=== PATIENT | female | born 1955 | race Caucasian/White ===

== ENCOUNTER 2019-09-02 10:11 | Observation (INO) | payer OTHER ==
[~2019-09-02] VITALS: Ht 165.1 cm; Wt 59.9 kg
[2019-09-02 10:22] VITALS: BP 142/86
[2019-09-02] MEDS ORDERED: FOLIC ACID1 MG PO (10:29)
[2019-09-02] MEDS ORDERED: DEXAMETHASONE 44 M1 PO (10:30)
[2019-09-02] MEDS ORDERED: NARCAN4 MG NARES (10:31)
[2019-09-02] MEDS ORDERED: HYDROCODONE-CH115 ML PO (10:33)
[2019-09-02] MEDS ORDERED: AMLODIPINE BESY10 MG PO (10:34)
[2019-09-02] MEDS ORDERED: NAPRELAN375 MG PO (10:34)
[2019-09-02] MEDS ORDERED: PERCOCET 10-321 EAC1 PO (10:35)
[2019-09-02] MEDS ORDERED: HYDROXYZINE HCL10 M2 PO (10:36)
[2019-09-02] MEDS ORDERED: COMPAZINE10 MG PO (10:37)
[2019-09-02 11:44] LABS: ABSOLUTE BASOPHILS 0.1 thou/uL (0.0-0.2); ABSOLUTE LYMPHOCYTES 1.3 thou/uL (0.8-5.3); ABSOLUTE MONOCYTES 0.4 thou/uL (0.0-1.2); ABSOLUTE NEUTROPHILS 6.3 thou/uL (1.6-8.1); BASOPHILS 0.8 %; EOSINOPHILS 0.3 %; HEMATOCRIT 36.6 % (37.0-47.0); HEMOGLOBIN 12.8 gm/dL (12.0-15.0); LYMPHOCYTES 16.5 %; MCH 26.8 pg (26.0-34.0); MCHC 35.1 g/dL (28.0-37.0); MCV 76.4 fL (80.0-100.0); MONOCYTES 4.5 %; MPV 10.8 fl. (7.2-11.1); NUCLEATED RBCS 0 /100WBC; PLATELET COUNT* 328 thou/uL (150-400); POLYS 77.9 %; RBC 4.79 mil/uL (4.20-5.00); RDW-CV 13.8 % (10.5-14.5); WBC 8.1 thou/uL (4.0-11.0)
[2019-09-02 12:10] LABS: ALBUMIN 3.9 g/dL (3.4-5.0); CALCIUM 9.4 mg/dL (8.5-10.1); CREATININE 0.6 mg/dL (0.6-1.3); TOTAL BILIRUBIN 0.5 mg/dL (<0.1-1.0); TOTAL PROTEIN 10.5 g/dL (6.4-8.2)
[2019-09-02 12:11] LABS: POTASSIUM 5.6 mmol/L (3.5-5.1)
[2019-09-02 12:38] LABS: URINE BILIRUBIN NEGATIVE (Negative); URINE BLOOD TRACE (Negative); URINE CLARITY CLEAR; URINE COLOR YELLOW; URINE GLUCOSE-RANDOM NEGATIVE (Negative); URINE KETONES NEGATIVE (Negative); URINE LEUKOCYTES-REFLEX NEGATIVE (Negative); URINE NITRITE-REFLEX NEGATIVE (Negative); URINE PROTEIN NEGATIVE (Negative); URINE SPECIFIC GRAVITY <= 1.005 (1.005-1.030); URINE UROBILINOGEN 0.2 E.U./dl (0.2-1.0)
--- NOTE | 2019-09-02 13:35 | EKG ---
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 09/02/19 1333 1147 1147 Yobani Amador MD, [facility] /EPI
[2019-09-02 16:57] VITALS: BP 110/63
[2019-09-02 17:20] VITALS: BP 122/72
--- NOTE | 2019-09-02 19:06 | NUR ---
PT. ADMITTED TO FLOOR BY BED FROM ER. VSS, AOX4, NO SKIN BREAKDOWN NOTED. SR-ST ON MONITOR, ROOM AIR, ADMISSION ASSESSMENT PERFORMED. PT. ORIENTED TO ROOM. CALL LIGHT AND PERSONAL BELONGINGS PLACED WITHIN REACH. PIV ON L AC AND R WR. SALINE LOCKED.
[2019-09-02 20:00] VITALS: BP 123/74
[2019-09-02] MEDS ORDERED: SYMBICORT160 MCG/4. INH (23:40)
[2019-09-02] MEDS ORDERED: OXYCODONE HCL 55 MG PO (23:43)
[2019-09-02] MEDS ORDERED: MELATONIN10 M3 PO (23:45)
[2019-09-03] VITALS: BP 113/62
[2019-09-03 04:00] VITALS: BP 115/73
[2019-09-03 05:12] LABS: HEMATOCRIT 33.6 % (37.0-47.0); HEMOGLOBIN 11.4 gm/dL (12.0-15.0); MCH 26.3 pg (26.0-34.0); MCHC 33.9 g/dL (28.0-37.0); MCV 77.4 fL (80.0-100.0); MPV 11.1 fl. (7.2-11.1); RBC 4.34 mil/uL (4.20-5.00); RDW-CV 14.3 % (10.5-14.5); WBC 10.9 thou/uL (4.0-11.0)
[2019-09-03 05:42] LABS: ALBUMIN 3.2 g/dL (3.4-5.0); CALCIUM 8.4 mg/dL (8.5-10.1); CREATININE 0.7 mg/dL (0.6-1.3); POTASSIUM 3.4 mmol/L (3.5-5.1); TOTAL BILIRUBIN 0.4 mg/dL (<0.1-1.0); TOTAL PROTEIN 7.9 g/dL (6.4-8.2)
--- NOTE | 2019-09-03 06:28 | NUR ---
ASSUMED PT CARE AT APPROX 1930. PT IS AWAKE AND ORIENTED X4. HAIR BOILER IS TRACING SR/ST. ASSESSMENT DONE AND CHARTED. PT STATED THAT THE PAIN IS STILL THERE BUT SHE DENIES THE NEED FOR MORE PAIN MEDICINE. FENTANYL PATCH IN PLACE. PT IS ABLE TO SLEEP SOME OF THE NIGHT. CALL LIGHT WITHIN REACH. HOURLY ROUNDING DONE FOR PT SAFETY.
[2019-09-03 08:30] VITALS: BP 108/59
[2019-09-03] MEDS ORDERED: MARINOL 2.5 MG2.5 M1 PO (09:29)
[2019-09-03] MEDS ORDERED: FENTANYL PATCH75 MCG TRANSDERM (09:29)
[2019-09-03] MEDS ORDERED: OXYCODONE HCL 55 MG PO (09:29)
[2019-09-03] MEDS ORDERED: PROAIR HFA8.5 GM INH (10:42)
[2019-09-03 10:52] VITALS: BP 115/73
--- NOTE | 2019-09-03 11:45 | NUR ---
DC ORDERS RECEIVED. IV AND MONITOR REMOVED. PT. GIVEN DC INSTRUCTIONS, SCRIPTS, AND CARENOTES. PT. C/O OF NAUSEA/DIZZINESS PRIOR TO DC. PT. DID NOT WANT TO STOP DISCHARGE, SHE WANTED TO MAKE HER APPT. WITH HER REGULAR DOCTOR TODAY. ENCOURAGED PT. TO DISCUSS THIS NEW SYMPTOM, DISCUSSED SIDE EFFECTS OF NEW MEDICATIONS STARTED WELL. PT. DC WITH DAUGHTER IN PERSONAL VEHICLE, ALL BELONGINGS ACCOUNTED FOR.
== END 2019-09-03 11:42 | disposition home or self-care (01) ==
LOC: M.ERS 10:11 → M.2W 13:27 → M.TBA-ER 13:27 → M.2W 17:24
PROVIDERS: Nurse Practitioner Family; ADMIT Family Medicine
DX: F11.23 Opioid dependence with withdrawal (principal); E87.5 Hyperkalemia; C34.90 Malignant neoplasm of unspecified part of unspecified bronchus or lung; C79.51 Secondary malignant neoplasm of bone; R41.0 Disorientation, unspecified; I10 Essential (primary) hypertension; F41.9 Anxiety disorder, unspecified; F32.9 Major depressive disorder, single episode, unspecified

== ENCOUNTER 2019-10-19 08:54 | Inpatient (IN) | payer OTHER ==
[~2019-10-19] VITALS: Ht 157.5 cm; Wt 49.8 kg
[~2019-10-19 08:54] MED LIST: AMLODIPINE BESY10 MG PO; COMPAZINE10 MG PO; DEXAMETHASONE 44 M1 PO; FENTANYL PATCH75 MCG TRANSDERM; FOLIC ACID1 MG PO; HYDROCODONE-CH115 ML PO; HYDROXYZINE HCL10 M2 PO; MARINOL 2.5 MG2.5 M1 PO; MELATONIN10 M3 PO; NAPRELAN375 MG PO; NARCAN4 MG NARES; OXYCODONE HCL 55 MG PO; PERCOCET 10-321 EAC1 PO; PROAIR HFA8.5 GM INH; SYMBICORT160 MCG/4. INH
[2019-10-19 09:07] VITALS: BP 114/76
[2019-10-19 09:54] LABS: ABSOLUTE LYMPHOCYTES 1.7 thou/uL (0.8-5.3); ABSOLUTE MONOCYTES 0.6 thou/uL (0.0-1.2); BASOPHILS 0.3 %; HEMATOCRIT 34.7 % (37.0-47.0); HEMOGLOBIN 11.7 gm/dL (12.0-15.0); LYMPHOCYTES 14.8 %; MCH 26.2 pg (26.0-34.0); MCHC 33.8 g/dL (28.0-37.0); MCV 77.6 fL (80.0-100.0); NUCLEATED RBCS 0 /100WBC; POLYS 79.9 %; RBC 4.47 mil/uL (4.20-5.00); RDW-CV 14.8 % (10.5-14.5); WBC 11.3 thou/uL (4.0-11.0)
[2019-10-19 10:06] LABS: CALCIUM 8.8 mg/dL (8.5-10.1); CREATININE 0.6 mg/dL (0.6-1.3); POTASSIUM 4.5 mmol/L (3.5-5.1)
[2019-10-19 10:13] LABS: APTT 26.6 Seconds (25.0-31.3); PROTIME 10.7 Seconds (9.20-11.50)
[2019-10-19 10:16] LABS: ALBUMIN 3.2 g/dL (3.4-5.0); MAGNESIUM 1.9 mg/dL (1.8-2.4); TOTAL BILIRUBIN 0.4 mg/dL (<0.1-1.0); TOTAL PROTEIN 9.2 g/dL (6.4-8.2)
--- NOTE | 2019-10-19 10:21 | NUR ---
UNABLE TO OBTAIN IV AFTER TRIAGE, ATTEMPT X 2 UNSUCCESSFUL. DEVONTE COX [facility] CALLED TO INITIATE IV
[2019-10-19 10:45] LABS: GIANT PLATELETS OCCASIONAL; LARGE PLATELETS OCCASIONAL
[2019-10-19 10:46] LABS: PLATELET COUNT* 282 thou/uL (150-400)
[2019-10-19] MEDS ORDERED: OXYCONTIN15 MG PO (11:04)
[2019-10-19] MEDS ORDERED: DULCOLAX STOOL100 M1 PO (11:04)
[2019-10-19 11:19] VITALS: BP 134/79
[2019-10-19 12:05] VITALS: BP 134/75
--- NOTE | 2019-10-19 15:30 | EKG ---
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 : 1955 Requested By: Andres Huang Order Number: [id number] MD: Antonio Navarrete Measurements Intervals [place] Rate: 109 P: 77 [place]: 127 QRS: -8 QRSD: 67 T: 147 QT: 317 QTc: 427 Interpretive Statements Sinus tachycardia Nonspecific T abnormalities, lateral leads Baseline wander in lead(s) V5 Compared to ECG 09/02/2019 11:47:03 Left ventricular hypertrophy no longer present T-wave abnormality still present Electronically Signed On 10-19-2019 15:29:13 CDT by Antonio Navarrete [email or web address] <ELECTRONICALLY SIGNED> By: Antonio Navarrete MD, FACC 10/19/19 1529 9 9 Antonio Navarrete MD, [facility] /EPI
[2019-10-19 16:00] VITALS: BP 144/52
[2019-10-19 20:15] VITALS: BP 135/58
[2019-10-20 04:07] LABS: ABSOLUTE LYMPHOCYTES 1.5 thou/uL (0.8-5.3); ABSOLUTE MONOCYTES 0.2 thou/uL (0.0-1.2); ABSOLUTE NEUTROPHILS 5.9 thou/uL (1.6-8.1); BASOPHILS 0.1 %; HEMATOCRIT 32.3 % (37.0-47.0); HEMOGLOBIN 11.2 gm/dL (12.0-15.0); LYMPHOCYTES 19.8 %; MCH 26.2 pg (26.0-34.0); MCHC 34.6 g/dL (28.0-37.0); MCV 75.9 fL (80.0-100.0); MONOCYTES 2.2 %; MPV 10.4 fl. (7.2-11.1); NUCLEATED RBCS 0 /100WBC; PLATELET COUNT* 236 thou/uL (150-400); POLYS 77.9 %; RBC 4.25 mil/uL (4.20-5.00); RDW-CV 14.4 % (10.5-14.5); WBC 7.6 thou/uL (4.0-11.0)
--- NOTE | 2019-10-20 04:11 | NUR ---
ASSUMED CARE FROM DAY SHIFT , PT UP AMBULATING IN HALLWAY TOLERATING WELL, PAIN MEDICATION X1 SLEEPING WELL THROUGHOUT HOURLY ROUNDS, WILL CONTINUE WITH CURRENT PLAN OF CARE.
[2019-10-20 04:27] LABS: CALCIUM 8.9 mg/dL (8.5-10.1); CREATININE 0.7 mg/dL (0.6-1.3)
[2019-10-20 04:28] LABS: POTASSIUM 3.5 mmol/L (3.5-5.1)
[2019-10-20 07:50] VITALS: BP 118/66
[2019-10-20 16:00] VITALS: BP 115/71
--- NOTE | 2019-10-20 17:12 | NUR ---
ASSUMED CARE OF PATIENT AT APPROX 0730. ALERT AND ORIENTED X4. ASSESSMENT COMPLETED AND CHARTED. VSS ON ROOM AIR. PAIN MANAGED WITH FENTANYL AND OXY IR. FLUIDS INFUSED ORDERED. PATIENT UP AD ISAURO IN THE ROOM. SHOWERED TODAY. NO OTHER COMPLAINTS THIS SHIFT. CALL LIGHT WITHIN REACH. HOURLY ROUNDS COMPLETED. WILL CONTINUE WITH PLAN OF CARE.
[2019-10-20 20:00] VITALS: BP 129/69
[2019-10-21 04:16] LABS: ABSOLUTE LYMPHOCYTES 3.1 thou/uL (0.8-5.3); ABSOLUTE MONOCYTES 0.8 thou/uL (0.0-1.2); BASOPHILS 0.4 %; EOSINOPHILS 0.1 %; HEMATOCRIT 34.8 % (37.0-47.0); HEMOGLOBIN 11.6 gm/dL (12.0-15.0); LYMPHOCYTES 22.3 %; MCH 25.5 pg (26.0-34.0); MCHC 33.2 g/dL (28.0-37.0); MCV 76.7 fL (80.0-100.0); MPV 11.8 fl. (7.2-11.1); NUCLEATED RBCS 0 /100WBC; PLATELET COUNT* 265 thou/uL (150-400); POLYS 71.2 %; RBC 4.54 mil/uL (4.20-5.00); RDW-CV 14.7 % (10.5-14.5)
[2019-10-21 04:38] LABS: ALBUMIN 2.7 g/dL (3.4-5.0); CALCIUM 8.3 mg/dL (8.5-10.1); CREATININE 0.6 mg/dL (0.6-1.3); TOTAL BILIRUBIN 0.3 mg/dL (<0.1-1.0); TOTAL PROTEIN 7.5 g/dL (6.4-8.2)
[2019-10-21 04:40] LABS: POTASSIUM 2.8 mmol/L (3.5-5.1)
--- NOTE | 2019-10-21 05:32 | NUR ---
PT A&O. VSS ON RA. MEDS GIVEN ORDERED. PT C/O PAIN IN LT LEG AND PAIN MANAGED WITH OXY IR. PT SLEEPING/RESTING THROUGH THE NIGHT. POTASSIUM 2.[address] YODER. WILL CONTINUE TO MONITOR.
[2019-10-21 07:50] VITALS: BP 140/71
--- NOTE | 2019-10-21 09:00 | NUR ---
SPOKE WITH PT.ABOUT HOSPICE. SHE WANTED TO CALL SISTER FOR CM TO SPEAK WITH HER. SPOKE WITH DORCAS/SISTER IN [place] [phone]. SHE SPOKE FLUENT CANADIAN. SHE SAID SHE FEELS SISTER UNDERSTANDS THERE ISNT MUCH FOR THE TO DO FOR HER. SHE FEELS SHE IS INTERESTED IN HOSPICE BUT WOULD WANT PALLIATIVE RADIAION. TOLD HER I WAS GOING TO GET IN TOUCH WITH A HOSPICE AGENCY AND THEY WOULD MOST LIKELY CALL PT.AND HER. CM CALLED [facility]. EXPLAINED AND GAVE INFORMATION ABOUT PT. FAXED REFERRAL INFORMATION AND ORDER TO HER . SHE SAID SHE WOULD HAVE FORENSIC EXAMINER AND CALL SISTER AND DAUGHTER. SHE WILL CHECK TO SEE IF THEY CAN COME TO HOSPITAL FOR EVAL.
[2019-10-21 16:14] VITALS: BP 137/73
--- NOTE | 2019-10-21 18:14 | NUR ---
ASSUMED CARE OF PATIENT AT APPROX 0730. ALERT AND ORIENTED X4. ASSESSMENT COMPLETED AND CHARTED. VSS ON ROOM AIR. COMPLAINTS OF PAIN MANAGED WITH IV FENTANYL AND ORAL OXY. FENTANYL PATCH CHANGED IT CAME OFF DURING HER SHOWER TODAY. PATIENT UP AD ISAURO IN THE ROOM. CALL LIGHT WITHIN REACH. HOURLY ROUNDS COMPLETED. WILL CONTNINUE WITH PLAN OF CARE.
[2019-10-21 20:30] VITALS: BP 136/80
--- NOTE | 2019-10-22 06:57 | NUR ---
Alert and oriented x 4. She is up independently in her room. She as been having abdominal pain and L leg pain. She had had PRN pain meds x 3. This am her K+ was 3.5. She states that she is feeling a little better this am. She has slept intermittenly.
[2019-10-22] MEDS ORDERED: MECLIZINE HCL25 M1 PO (07:54)
[2019-10-22] MEDS ORDERED: PHENERGAN 25 MG25 M1 PO (07:54)
[2019-10-22 08:00] VITALS: BP 108/71
[2019-10-22 11:44] VITALS: BP 108/71
--- NOTE | 2019-10-22 16:00 | NUR ---
SPOKE WITH [facility] . THEY SAID THEY WOULD NOT BE ABLE TO ACCEPT PT.TO SERVICE DUE TO NO INSURANCE. SPOKE WITH [facility]. HE CALLED AND SPOKE WITH PTS SISTER ,DORCAS. HE SAID SHE TOLD HIM PT.ONLY COBRA'D HER INSURANCE WAS SO SHE COULD HAVE RADIATION. HE SAID INS.WILL NOT PAY FOR HOSPICE AND RADIATION EVEN IF ITS PALLIATIVE. DISCUSSED WITH . PT.TO GO HOME WITH PALLIATIVE CARE AND HH. WILL CHECK WITH [facility] TO SEE IF THEY WOULD DO 1-2 SABINE VISITS. FAXED INFORMATION TO [facility] PALL[facility]. BRYNN CALLED BACK AND SAID THEY WOULD ACCEPT HER ON TO PALLIATIVE CARE. THEY WILL ALSO EVAL HER FOR HOSPICE WHEN RN GOES TO SEE HER AT HOME. THEY WOULD CONSIDER HOSPICE IF NEEDED IF PT WERE GETTING PALLIATIVE RADIATION. NO CALL BACK FROM . CM WILL CALL AGAIN FRIDAY. TOLD PT.ABOUT BEING DISCHARGED WITH PALLIATIVE CARE. SHE WAS TEARFUL. WE CALLED HER SISTER DORCAS. SHE SAID PT.S DAUGHTER HAS ALREADY GONE TO WORK FOR THE NIGHT. PT.WOULD BE ALONE DURING THE NIGHT. SHE FEELS SHE IS HAVING TOO MUCH PAIN TO GO HOME TODAY. NURSING INFORMED.
--- NOTE | 2019-10-22 17:42 | NUR ---
PT IS A/O X4 BUT HAS DIFFICULTY COMMUNICATING DUE TO LANGUAGE BARRIER AT TIMES.AMILODIPINE HELD THIS AM DUE TO LOW BP.PAIN MANAGED WELL WITH PO MEDICATIONS.N/V MANAGED WELL WITH IV MEDICATIONS.PT AMBULATED IN HALLWAY.PT WAS OK FOR DISCHARGE BUT PT AND FAMILY WANTED PT TO STAY ANOTHER NIGHT.PT WOULD BE HOMOE ALONE WITH NO ONE THERE IF WENT HOME TONIGHT.PHYSICIAN NOTIFIED.POSSIBLY DISCHARGE TOMORROW.CALL LIGHT WITHIN REACH.WILL CONTINUE TO MONITOR FOR DURATION OF SHIFT.
[2019-10-22 22:00] VITALS: BP 122/74
--- NOTE | 2019-10-23 05:08 | NUR ---
PT A&O, VSS ON RA. MEDS GIVEN ORDERED. PAIN MANAGED WITH OXY IR. PT SLEEPING THROUGH THE NIGHT. WILL CONTINUE TO MONITOR.
[2019-10-23 08:03] VITALS: BP 120/67
[2019-10-23 09:25] VITALS: BP 120/67
--- NOTE | 2019-10-23 11:14 | NUR ---
SPOKE WITH PT SISTER, DORCAS OVER THE PHONE. EXPLAINED TO HER THAT THE PT WAS DOING BETTER AND WOULD BE DISCHARGED TO HOME WITH PALLIATIVE CARE TODAY. SISTER AGREED IN THE DECISION MAKING AND IS GOING TO CONTACT THE PT DAUGHTER.
--- NOTE | 2019-10-23 18:10 | NUR ---
PT DISCHARGED TO HOME WITH PALLIATIVE CARE BY WHEELCHAIR WITH NURSING STAFF AND DAUGHTER. IV OUT. PAIN CONTROLLED. DENIED N/V. PERSONAL ITEMS SENT WITH PT.
--- NOTE | 2019-11-03 12:39 | CON ---
[address] [address] CONSULTATION Name: DAYLIN CROCKETT Room: [address] IN ..#: [id number] Admission: 10/19/19 Attend Phys: Earle Steinberg MD Discharge: 10/23/19 Date of : 55 Report #: [id number] THIS REPORT FOR: //name// cc: Physician not on staff Physician not on staff ~ THIS REPORT FOR: //name// CC: Earle Steinberg Physician staff HEIKE PAL DATE OF SERVICE: 10/20/2019 HISTORY OF PRESENT ILLNESS: This is a 64-year-old female patient who predominantly speaks Nigerian. I am not able to get a good history and I am going to try with a filer helper whenever it can be arranged. Neurological consult is requested for dizziness. She says when she moves her neck, she feels dizzy. If she stays stable and does not move, she does not feel dizzy. It is going on for several days the best I can tell. She has multiple other problems including some metastatic lung carcinoma. REVIEW OF SYSTEMS: Positive for anxiety, lung cancer with metastasis and acute narcotic withdrawal at one time. She does have cancer pain, which is intractable. Acute narcotic withdrawal is only from the record. She has a history of hypertension and hysterectomy. That is all the 14-point review of system I can get. PAST MEDICAL HISTORY: Positive for metastatic lung cancer. FAMILY HISTORY: Unremarkable. SOCIAL HISTORY: She does not drink alcohol. PHYSICAL EXAMINATION: GENERAL: Indicates she is able to talk; she talks in Nigerian mostly but she does talk in Icelandic intermittently. NEUROLOGICAL: Cranial nerve examinations appear noncontributory. NEUROMUSCULAR: Examination is difficult because of problem with the left leg, which she indicates is because of metastasis. Her position sense appeared to be intact. She is alert and responsive. NECK: There is no thyroid mass or carotid bruit. VITAL SIGNS: Blood pressure is 118/66, pulse is 98 and temperature is 98.4. LABORATORY DATA: White count is 7.6. Pulses are difficult to feel. CT scan of the head 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 I will talk to you, I will try to talk to her through an director fraud and see if we can get better history and try to arrange an MRI if she does not have a contraindication. Today's history, she says that she has metal in her breast and multiple other places. Thank you very much for this referral. If you have any question, please feel to contact me. <ELECTRONICALLY SIGNED> By: Martinez Kumar MD 11/03/19 1239 [id number] [id number] Kumar MD /nt
== END 2019-10-23 18:12 | disposition hospice, home (50) | DRG 149 ==
LOC: M.ERS 08:54 → M.ORTHSURG 10:37 → M.TBA-ER 10:37 → M.ORTHSURG 10:37
PROVIDERS: Family Medicine; ADMIT Internal Medicine; ATTEND Internal Medicine
PROC: 05HY33Z Insertion of Infusion Device into Upper Vein, Percutaneous Approach (ICD-10-PCS; principal; 2019-10-19)
DX: H81.10 Benign paroxysmal vertigo, unspecified ear (principal); C34.90 Malignant neoplasm of unspecified part of unspecified bronchus or lung; R65.10 Systemic inflammatory response syndrome (SIRS) of non-infectious origin without acute organ dysfunction; E44.0 Moderate protein-calorie malnutrition; C79.51 Secondary malignant neoplasm of bone; C79.00 Secondary malignant neoplasm of unspecified kidney and renal pelvis; I10 Essential (primary) hypertension; E86.0 Dehydration; H93.3X9 Disorders of unspecified acoustic nerve; E87.6 Hypokalemia; Z90.710 Acquired absence of both cervix and uterus; Z68.20 Body mass index [BMI] 20.0-20.9, adult; Z85.118 Personal history of other malignant neoplasm of bronchus and lung; Z79.899 Other long term (current) drug therapy